=== PATIENT | female | born 1965 | race Caucasian/White ===

== ENCOUNTER 2017-02-25 00:32 | Observation (INO) | payer SELFPAY ==
[2017-02-25] VITALS (7 sets, daily range): BP systolic 113–141; BP diastolic 74–94; PULSE 61–86; RESP 16–20; TEMP 96.1–98.6; O2SAT 95–100
[~2017-02-25] VITALS: Ht 167.6 cm; Wt 76.0 kg
[~2017-02-25 00:32] MED LIST: METH10TA PO
--- NOTE | 2017-02-25 00:50 | PD ---
HPI Chief Complaint: Injury Time Seen by Provider: 00:47 Travel History International Travel<30 days: No Contact w/Intl Traveler<30days: No Traveled to known affect area: No History of Present Illness HPI 52-year-old female presents for evaluation of left elbow pain. Prior to arrival the patient reports that she was walking and it was dark outside. She reports that she was on the phone with a friend when she tripped over a fence. She hit her left elbow against the ground. She now has pain to the left elbow, throbbing, constant, worse with movement. Denies any numbness or tingling. Denies any other injuries. Last tetanus vaccination unknown. No other complaints. PFSH Past Medical History Blood Disorders: No Anxiety: Yes Depression: Yes Cancer: No Cardiovascular Problems: No Diminished Hearing: No Endocrine: No Gastrointestinal Disorders: No Genitourinary: No Immune Disorder: No Implanted Vascular Access Dvce: No Musculoskeletal: No Neurologic: No Psychiatric: No Reproductive: No Respiratory: No Immunizations Current: Yes Tetanus Vaccination: Unknown Influenza Vaccination: No ?: Not : 5 Para: 2 Miscarriage: 2 : 1 Ectopic : Yes Tubal Ligation: Yes Past Surgical History Abdominal Surgery: Yes Gynecologic Surgery: Yes (tubal --'96) Other Surgery: Yes (LEFT ARM SURGERY MRSA RELATED) Social History Alcohol Use: No (denies) Tobacco Use: Yes (10 cigs/daily, last was 11 AM.) Substance Use: No (sober x 1 month) Allergies-Medications (Allergen,Severity, Reaction): Coded Allergies: Vancomycin (Verified Adverse Reaction, Severe, "RED MAN'S SYNDROME", ) Reported Meds & Prescriptions Reported Meds & Active Scripts Active No Active Prescriptions or Reported Medications Review of Systems Musculoskeletal: Positive: Pain Skin: Positive Other (positive for bruising, soft tissue swelling, abrasion, pain) Neurologic: No: Paresthesia Physical Exam Narrative GENERAL: Well-developed well-nourished female in no acute distress SKIN: Warm and dry. Abrasion and olecranon bursal swelling to the left elbow. HEAD: Atraumatic. Normocephalic. EYES: Pupils equal and round. No scleral icterus. No injection or drainage. ENT: No nasal bleeding or discharge. Mucous membranes pink and moist. NECK: Trachea midline. No JVD. CARDIOVASCULAR: Regular rate and rhythm. No murmur appreciated. RESPIRATORY: No accessory muscle use. Clear to auscultation. Breath sounds equal bilaterally. MUSCULOSKELETAL: Skin as noted above. Tender to palpation posterior left elbow. Full range of motion left upper extremity. Pain with flexion and extension left elbow. 2+ radial pulse, capillary refill less than 2 seconds all digits left hand. NEUROLOGICAL: Awake and alert. No obvious cranial nerve deficits. Motor grossly within normal limits. Normal speech. Data Data Last Documented VS Vital Signs Date Time Temp Pulse Resp B/P Pulse Ox O2 Delivery O2 Flow Rate FiO2 02/25/17 00:34 98.6 79 16 135/94 100 Room Air Orders Tetanus/Diphtheria Tox Adult (Tetanus/Di (02/25/17 01:00) Elbow, Complete (4 Vws) (02/25/17 ) Iv Access Insert/Monitor (02/25/17 01:47) Complete Blood Count With Diff (02/25/17 01:47) Basic Metabolic Panel (Bmp) (02/25/17 01:47) Act Partial Throm Time (Ptt) (02/25/17 01:47) Prothrombin Time / Inr (Pt) (02/25/17 01:47) Electrocardiogram (02/25/17 ) Splint Or Brace Apply/Monitor (02/25/17 01:47) Morphine Inj (Morphine Inj) (02/25/17 02:00) Ondansetron Inj (Zofran Inj) (02/25/17 02:00) NPO (02/25/17 01:48) Consult Orthopedic (02/25/17 ) Admit Order (Ed Use Only) (02/25/17 02:09) MDM Medical Decision Making Medical Screen Exam Complete: Yes Emergency Medical Condition: Yes Medical Record Reviewed: Yes Differential Diagnosis Olecranon bursitis, abrasion, fracture, contusion, dislocation Narrative Course X-ray imaging confirms a left olecranon fracture. Tetanus status updated. Discussed with the on-call orthopedist Dr. Gallo he would like the patient remained npo, admission to the hospitalist, orthopedic consultation. Discussed these recommendations with the patient who is agreeable. A posterior long-arm splint has been ordered. The patient will be admitted. Morphine and Zofran up in order for pain control. Procedures EKG Prior to Arrival: Yes Diagnosis Primary Impression: Fracture of left olecranon process Qualified Code: S52.022A - Fracture of left olecranon process, closed, initial encounter Admitting Information Admitting Physician Requests: Observation Scripts No Active Prescriptions or Reported Meds Bridger Gil Feb 25, 2017 00:50
[2017-02-25] MEDS ORDERED: TETANUS/DIPHTHERIA TOXOID ADULT 0.5 ML VIAL IM ONE (01:00)
--- NOTE | 2017-02-25 01:20 | RADRPT ---
EXAM DATE/TIME: 02/25/2017 01:04 [facility] COMPARISON: No previous studies available for comparison. INDICATIONS : Left elbow pain. MEDICAL HISTORY : None. SURGICAL HISTORY : None. ENCOUNTER: Initial ACUITY: 1 day PAIN SCORE: 8/10 LOCATION: Left elbow. FINDINGS: 4 views left elbow reveal acute fracture through the olecranon process. No retraction of the fracture fragment observed. Remaining bony structures are intact. CONCLUSION: Acute fracture through the olecranon process. Homer Pinto Jr., MD on February 25, 2017 at 1:18 Board Certified Radiologist. This report was verified electronically.
[2017-02-25] MEDS ORDERED: ONDANSETRON HCL 4 MG/2 ML VIAL IV PUSH ONE ×2 (02:00→12:00)
[2017-02-25] MEDS ORDERED: MORPHINE SULFATE 8 MG/ML INJ IV PUSH ONE (02:00)
[2017-02-25] MEDS: SODIUM CHLOR 0.9% 1000 ML INJ 1,000 ML IV SCH ×3 (02:11→21:26)
[2017-02-25] MEDS ORDERED: BISACODYL 10 MG SUPP RECTAL PRN (02:15)
[2017-02-25] MEDS ORDERED: ACETAMINOPHEN/HYDROcodone 325 MG/5 MG TAB PO PRN (02:15)
[2017-02-25] MEDS ORDERED: ACETAMINOPHEN 325 MG TAB PO PRN (02:15)
[2017-02-25] MEDS ORDERED: MORPHINE SULFATE 4 MG/ML INJ IV PRN (02:15)
[2017-02-25] MEDS ORDERED: SODIUM CHLORIDE 0.9% FLUSH 10 ML FLUSH IV FLUSH PRN (02:15)
[2017-02-25] MEDS ORDERED: ONDANSETRON HCL 4 MG/2 ML VIAL IVP PRN (02:15)
--- NOTE | 2017-02-25 03:32 | HHI.HP ---
[facility] No Primary Care Physician Admission Diagnosis (L) Olecranon fracture Diagnoses: (1) Fall Diagnosis: Principal (2) Fracture of left olecranon process Diagnosis: Principal (3) HTN (hypertension) Diagnosis: Principal (4) Tobacco abuse Diagnosis: Principal Travel History International Travel<30 Days: No Contact w/Intl Traveler <30 Da: No Traveled to Known Affected Are: No History of Present Illness This is a 52-year-old female with a PMH of Anxiety, Depression, h/o Substance Abuse and Tobacco Abuse who was brought to the ER w/ complaints of left elbow pain following fall. Per patient, she walking and talking on her phone and didn 't notice a chain link fence, states she tripped and fell onto left elbow w/ complaints of immediate pain. No head trauma or LOC reported. On arrival, BP 135/94, HR 79, O2 sat 100% on RA, Afebrile. Elbow X-ray with acute fracture through olecranon process. Dr. Gallo consulted by ER physician, plan is for surgical intervention. Review of Systems Except as stated in HPI: all other systems reviewed are Neg ROS: 14 point review of systems otherwise negative. Past Family Social History Past Medical History PMH: Anxiety, Depression, h/o Substance Abuse and Tobacco Abuse Past Surgical History PAST SURGICAL HISTORY: Left Arm Surgery, Tubal Allergies: Coded Allergies: Vancomycin (Verified Adverse Reaction, Severe, "RED MAN'S SYNDROME", ) Family History PAST FAMILY HISTORY: Reviewed. No h/o DM or CAD Social History PAST SOCIAL HISTORY: Negative for alcohol. Positive for tobacco. History of substance abuse, quit 1 month ago. Physical Exam Vital Signs Vital Signs Date Time Temp Pulse Resp B/P Pulse Ox O2 Delivery O2 Flow Rate FiO2 02/25/17 00:34 98.6 79 16 135/94 100 Room Air Physical Exam PE: GENERAL: Middle-aged female in no acute distress. HEENT: PERRLA, EOMI. No scleral icterus or conjunctival pallor. No lid lag or facial droop. CARDIOVASCULAR: Regular rate and rhythm. No obvious murmurs to auscultation. No chest tenderness to palpation. RESPIRATORY: No obvious rhonchi or wheezing. Clear to auscultation. Breath sounds equal bilaterally. GASTROINTESTINAL: Abdomen soft, non-tender, nondistended. BS normal. MUSCULOSKELETAL: Extremities without clubbing, cyanosis, or edema. No obvious deformities. LUE w/ decreased ROM due to injury. Pulses intact. NEUROLOGICAL: Awake, alert and oriented x4. No focal neurologic deficits. Moving both upper and lower extremities spontaneously. Assessment and Plan Problem List: (1) Fall ICD Code: W19.XXXA Status: Acute (2) Fracture of left olecranon process ICD Code: S52.022A Status: Acute (3) HTN (hypertension) ICD Code: I10 Status: Acute (4) Tobacco abuse ICD Code: Z72.0 Status: Acute Assessment and Plan A/P: 1. Fall: s/p mechanical trip and fall after walking into a chain link fence, no head trauma or LOC reported. 2. Left Elbow Fx: s/p fall onto left elbow, Elbow X-ray w/ fracture through olecranon process, images reviewed by me. Dr. Gallo consulted by ER physician , plan is for surgical intervention in am. NPO, IVF, analgesics/antiemetics as needed. 3. HTN: BP 130-140's on arrival, likely compounded by pain. No h/o HTN, will monitor. 4. Tobacco Abuse: Pt counselled. Ativan/NicoDerm prn if needed. 5. DVT Prophylaxis: Anticoagulation post op per Ortho 6. Social work for d/c planning as needed. 7. Case discussed w/ ER physician at length. Physician Certification 2 Midnight Certification Type: Admission for Inpatient Services Order for Inpatient Services The services are ordered in accordance with Medicare regulations or non- Medicare payer requirements, as applicable. In the case of services not specified as inpatient-only, they are appropriately provided as inpatient services in accordance with the 2-midnight benchmark. Estimated LOS (days): 2 days is the estimated time the patient will need to remain in the hospital, assuming treatment plan goals are met and no additional complications. Post-Hospital Plan: Not yet determined Problem Qualifiers (1) Fracture of left olecranon process: Qualified Code: S52.022A - Fracture of left olecranon process, closed, initial encounter Omaira Villa MD Feb 25, 2017 03:31
[2017-02-25 04:02] LABS: AUTOMATED NEUTROPHIL # 2.9 TH/MM3 (1.8-7.7); BASOPHIL % 0.4 % (0.0-2.0); EOSINOPHIL # 0.1 TH/MM3 (0-0.4); EOSINOPHIL % 1.5 % (0.0-4.0); HEMATOCRIT 46.7 % (35.0-46.0); LYMPH % 33.3 % (9.0-44.0); LYMPHOCYTE # 1.7 TH/MM3 (1.0-4.8); MEAN CELL VOLUME 91.7 FL (80.0-100.0); MEAN CORPUSCULAR HEMOGLOBIN 30.6 PG (27.0-34.0); MEAN CORPUSCULAR HGB CONC 33.4 % (32.0-36.0); MONO % 9.2 % (0.0-8.0); NEUT % 55.6 % (16.0-70.0); PLATELET COUNT 175 TH/MM3 (150-450); RED CELL DISTRIBUTION WIDTH 15.5 % (11.6-17.2); WHITE BLOOD COUNT 5.2 TH/MM3 (4.0-11.0)
[2017-02-25 04:06] LABS: HEMO FLAGS AUTO DIFF
[2017-02-25 04:25] LABS: PLATELET ESTIMATE SMEAR NORMAL (NORMAL); PLATELET MORPHOLOGY NORMAL (NORMAL); SCAN/DIFF AUTO DIFF CONFIRMED
[2017-02-25 04:27] LABS: BICARBONATE 23.2 MEQ/L (21.0-32.0); POTASSIUM 4.3 MEQ/L (3.5-5.1)
[2017-02-25] MEDS ORDERED: HYDR-3288 PO (06:51)
[2017-02-25] MEDS ORDERED: MIDAZOLAM HCL 2 MG/2 ML VIAL ONE (08:18)
[2017-02-25] MEDS ORDERED: DEXAMETHASONE SOD PHOS 4 MG/ML VIAL ONE (08:18)
[2017-02-25] MEDS ORDERED: ACETAMINOPHEN 1000 MG/100 ML VIAL IV ONE (08:18)
[2017-02-25] MEDS: SODIUM CHLORIDE 0.9% FLUSH 10 ML FLUSH IV FLUSH SCH ×2 (09:00→20:34)
[2017-02-25] MEDS ORDERED: ceFAZolin INJ 1,000 MG VIAL IV ONE (09:05)
[2017-02-25] MEDS ORDERED: GENTAMICIN SULFATE 80 MG/2 ML VIAL IRRIGATION ONE (09:09)
[2017-02-25] MEDS ORDERED: CLINDAMYCIN PHOS 600 MG/4 ML VIAL ONE (09:12)
[2017-02-25] MEDS ORDERED: CLINDAMYCIN PHOS 600 MG/4 ML VIAL IM ONE (09:12)
--- NOTE | 2017-02-25 09:48 | PD.OP ---
cc: Miky Boateng MD Operative Report Date of Surgery: Feb 25, 2017 Preoperative Diagnosis: Left olecranon fracture Postoperative Diagnosis: Procedure: Open reduction internal fixation left olecranon Anesthesia: Gen. Surgeon: Miky Boateng Towboat Engineer(s): STEVE Adam PA-C The surgical procedure was assisted by my physician catering assistant. My P.A. presence was necessary throughout this case for the manipulation and positioning of the surgical extremity. My P.A. was assisting me throughout the duration of this procedure. The skill set of a physician catering assistant was medically necessary to complete this procedure. During the surgical case the medical surgical tech was working at the back table and the physician catering assistant was directly assisting me. Operation and Findings: Patient was seen and evaluated preoperatively. Patient was found to have a displaced intra-articular olecranon fracture. The risk and benefits of the surgery were discussed in depth and informed consent was obtained. Risk of surgery include bleeding, infection, painful hardware, wound, case, elbow stiffness, loss of motion, elbow arthritis, injuries to arteries nerves or blood vessels, weakness and numbness of hand, as well as medical complications associated with general anesthesia. All questions were answered. Patient was brought to operating room. IV sedation and anesthesia were administered. Patient was placed into a lateral decubitus position. Timeout procedure was performed. IV antibiotics were administered prior to incision. The operative arm was prepped with alcohol followed by Hibiclens and draped in usual sterile fashion. Procedure began with a 4 inch incision over the olecranon. Subcutaneous tissue dissected with Bovie. Fracture site was visualized. Fascia was elevated around the fracture site. Fracture fragments were gently manipulated. A fracture tenaculum was used to aid in reduction. Multiple K wires result provisional fixation. A 2.7 cortical lag screw was used to compress fracture fragment. A Synthes proximal plate was selected. Plate was provisionally held with K wires 3.5 cortical screws were used to compress plate to bone. Multiple cortical screws were placed in the ulna shaft. Multiple locking screws were placed in the proximal ulna. All screws were predrilled and premeasured for appropriate length. K wires were removed. Final fluoroscopy revealed excellent of fractures well-placed hardware. Articular surface appeared to be in near anatomic alignment. Wound was now thoroughly irrigated. Incision was now closed with #1 Vicryl, 3-0 Vicryl, and ernestine. Sterile dressings were applied. Patient's placed a well molded well-padded splint. Patient was transferred to recovery in stable condition. Miky Boateng MD Feb 25, 2017 09:48
[2017-02-25] MEDS ORDERED: Post-op Orders (for Pharmacy) MISC XX ONE (10:00)
[2017-02-25] MEDS ORDERED: fentaNYL CITRATE 250 MCG/5 ML AMP ONE (10:24)
--- NOTE | 2017-02-25 10:24 | MB ---
cc: RENALDO MCKEON DATE OF CONSULTATION: 02/25/2017 REASON FOR CONSULTATION: Left olecranon fracture. CONSULTING PHYSICIAN Dr. Villa. HISTORY Irma is a 52-year-old female who presented emergency room after having a fall. She was walking and talking on her phone. She ran into a [employer] and tripped and fell. She landed on her left arm. She denies any dizziness, syncope or loss of consciousness. Pain is worse with movement is improved with rest presented emergency room where x-rays revealed a left olecranon fracture. She is placed into of long-arm splint. Pain is worse with movement. PAST MEDICAL HISTORY/ILLNESSES Anxiety, depression and history of substance abuse. SURGERIES Hand surgery Surgery for tubal . ALLERGIES VANCOMYCIN. FAMILY HISTORY: Family history is noncontributory. SOCIAL HISTORY The patient does smoke, approximately a pack per day. She states that she quit using alcohol, and drugs approximately one month ago. REVIEW OF SYSTEMS The patient denies headache, visual changes, neck pain, chest pain, shortness of breath, abdominal pain, nausea, vomiting or recent weight loss. She complains of left arm pain. PHYSICAL EXAMINATION IN GENERAL: The patient is a thin 52-year-old female in no acute distress. She is awake and alert. She is alert and x3. VITAL SIGNS: Temperature 96.1, pulse 61, respirations 20, blood pressure 134/74, O2 sats 100% room air. HEAD, EYES, EARS, NOSE, AND THROAT: Head: The patient is normocephalic. Pupils are equal. NECK: Soft, nontender. Trachea is midline. ABDOMEN: The abdomen is soft, nontender, nondistended. EXTREMITIES: Examination of left arm reveals no tenderness her shoulder, wrist or fingers. She has intact sensation in all fingers. Radial pulses palpable to the small superficial abrasion over the posterior elbow. Skin is otherwise intact. Examination of right arm reveals no pain with shoulder, elbow or wrist motion. Skin is intact. Radial pulses palpable. X-RAYS X-rays of right elbow were reviewed x-rays reveal a mildly displaced left olecranon fracture. IMPRESSION 1. Tobacco abuse. 2. History of alcohol and drug use. 3. Left olecranon fracture. PLAN The treatment options were discussed with the patient at this point, I would recommend open reduction fixation of left olecranon risks of surgery include bleeding, infection, injury to blood vessels, nonunion, malunion, painful hardware, wound infection as well as medical complications including blood clot, stroke, heart attack and . All questions were answered. I also went through the discussion with the patient regarding and need for smoking cessation. I explained her that if she continues to smoke she will have a much higher likelihood developing a wound problem, infection or nonunion. She was strongly encouraged to stop smoking. A mid-level provider in my office (nurse practitioner or physician museum assistant) may see this patient on follow-up visits and continue to implement the objectives of this plan including: Starting or adjusting medications, injections , cast application, orthotics, brace application, physical therapy, radiological studies (including x-ray, MRI, CT, ultrasound, bone scan), vascular studies, neurologic studies, specialist consultation, and proceeding with surgical management, as appropriate. MD YOLANDA Dacosta/paul /9:52 AM /10:17 AM DEEPIKA
[2017-02-25] MEDS ORDERED: DO NOT ADM ANY ANTICOAGULANT DRUGS PRN ×2 (11:00→12:00)
--- NOTE | 2017-02-25 11:48 | RADRPT ---
EXAM DATE/TIME: 02/25/2017 10:19 [facility] COMPARISON: No previous studies available for comparison. INDICATIONS : Central line placement done in or. MEDICAL HISTORY : Acute fracture through the olecranon process. SURGICAL HISTORY : None. ENCOUNTER: Initial ACUITY: 1 day PAIN SCORE: 0/10 LOCATION: Bilateral chest FINDINGS: The lungs are clear without infiltrate, nodule, or mass. There is no appreciable pleural effusion fo r technique. Heart and mediastinum are unremarkable. Right IJ line is present with tip overlapping t he expected region of the SVC. CONCLUSION: No acute cardiopulmonary disease. Rocky Rodriguez MD on February 25, 2017 at 11:46 Board Certified Radiologist. This report was verified electronically.
[2017-02-25] MEDS ORDERED: PROPOFOL 200 MG/20 ML AMP IV ONE (12:00)
--- NOTE | 2017-02-25 13:03 | RADRPT ---
EXAM DATE/TIME: 02/25/2017 09:33 [facility] COMPARISON: No previous studies available for comparison. INDICATIONS : ORIF left olecranon. MEDICAL HISTORY : None. SURGICAL HISTORY : None. ENCOUNTER: Subsequent ACUITY: 1 day PAIN SCORE: Non-responsive. LOCATION: Left elbow. FINDINGS: Side plate and multiple screws traverse the ulna with excellent anatomical alignment of the fracture fragments. CONCLUSION: Intact postsurgical changes for technique. Rocky Rodriguez MD on February 25, 2017 at 13:00 Board Certified Radiologist. This report was verified electronically.
[2017-02-25 16:06] LABS: APTT (PATIENT) 29.5 SEC (24.3-30.1); PROTHROMBIN TIME - PATIENT 11.6 SEC (9.8-11.6)
[2017-02-25] MEDS: ACETAMINOPHEN/HYDROcodone 325 MG/7.5 MG TAB PO PRN (16:09)
[2017-02-25] MEDS: MORPHINE SULFATE 4 MG/ML INJ IV PUSH PRN (16:10)
[2017-02-25] MEDS: ceFAZolin 2 GM PREMIX 50 ML IV SCH (16:11)
--- NOTE | 2017-02-25 18:51 | EKG ---
Date Performed: 02/25/2017 Time Performed: 02:27:48 PTAGE: 52 years EKG: Sinus rhythm NORMAL ECG Compared to prior tracing no significant change PREVIOUS TRACING 05/18/08 @10.49.46 DOCTOR: Juan Carlos Ramírez Interpretating Date/Time 02/25/2017 18:50:31
[2017-02-26] VITALS: BP 115/56; PULSE 75; RESP 18; TEMP 95.3; O2SAT 95
[2017-02-26] MEDS: ceFAZolin 2 GM PREMIX 50 ML IV SCH (00:38)
[2017-02-26] MEDS: MORPHINE SULFATE 4 MG/ML INJ IV PUSH PRN ×2 (00:38→08:42)
[2017-02-26 04:00] VITALS: BP 117/68; PULSE 85; RESP 20; TEMP 97.8; O2SAT 96
[2017-02-26] MEDS: ACETAMINOPHEN/HYDROcodone 325 MG/7.5 MG TAB PO PRN ×2 (06:59→11:39)
[2017-02-26 07:26] LABS: AUTOMATED NEUTROPHIL # 4.2 TH/MM3 (1.8-7.7); BASOPHIL % 0.2 % (0.0-2.0); EOSINOPHIL % 0.5 % (0.0-4.0); HEMATOCRIT 36.1 % (35.0-46.0); HEMO FLAGS DIFF FINAL; LYMPH % 28.7 % (9.0-44.0); MEAN CELL VOLUME 90.1 FL (80.0-100.0); MEAN CORPUSCULAR HEMOGLOBIN 29.4 PG (27.0-34.0); MEAN CORPUSCULAR HGB CONC 32.7 % (32.0-36.0); MONO % 9.5 % (0.0-8.0); NEUT % 61.1 % (16.0-70.0); PLATELET COUNT 159 TH/MM3 (150-450); RED BLOOD COUNT 4.01 MIL/MM3 (4.00-5.30); RED CELL DISTRIBUTION WIDTH 15.4 % (11.6-17.2); WHITE BLOOD COUNT 6.9 TH/MM3 (4.0-11.0)
[2017-02-26 07:52] LABS: ALT (GPT) 37 U/L (10-53); ANION GAP 7 MEQ/L (5-15); AST (GOT) 27 U/L (15-37); BLOOD UREA NITROGEN 8 MG/DL (7-18); CHLORIDE 110 MEQ/L (98-107); GLOMERULAR FILTRATION RATE 82 ML/MIN (>89); POTASSIUM 3.8 MEQ/L (3.5-5.1); SODIUM (NA) 142 MEQ/L (136-145)
[2017-02-26 07:54] LABS: ALKALINE PHOSPHATASE 117 U/L (45-117); TOTAL BILIRUBIN ADULT 0.4 MG/DL (0.2-1.0)
[2017-02-26 08:11] VITALS: BP 115/72; PULSE 74; RESP 17; TEMP 98.5; O2SAT 97
[2017-02-26] MEDS: SODIUM CHLOR 0.9% 1000 ML INJ 1,000 ML IV SCH (08:11)
--- NOTE | 2017-02-26 08:23 | PD.ORT.PN ---
Subjective Subjective Remarks Very histrionic. As soon as we enter the room she states 'i can't believe it they aren't giving me anything for pain'. Before she was asked a single question she states they are ' only giving her morphine and norco.. who does that?'. Patient states her pain is poorly controlled and that she can feel her incision. She denies any numbness or loss of sens. 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 No chest pain or shortness of breath. No other complaints or concerns. Objective Vitals Vital Signs Date Time Temp Pulse Resp B/P Pulse Ox O2 Delivery O2 Flow Rate FiO2 02/26/17 08:11 98.5 74 17 115/72 97 02/26/17 04:00 97.8 85 20 117/68 96 02/26/17 00:00 95.3 75 18 115/56 95 02/25/17 20:20 98 21 02/25/17 20:03 97.3 82 18 113/75 98 02/25/17 17:09 18 02/25/17 16:15 18 02/25/17 16:15 97.4 63 18 127/82 100 02/25/17 12:45 86 141/87 95 02/25/17 11:00 97.6 70 15 138/97 99 Nasal Cannula 2 02/25/17 10:45 68 13 149/89 99 Nasal Cannula 2 02/25/17 10:30 71 12 143/92 99 Nasal Cannula 2 02/25/17 10:15 99 14 151/86 99 Nasal Cannula 2 02/25/17 10:13 97.4 97 16 142/84 98 Nasal Cannula 2 I/O 02/25/17 02/25/17 02/25/17 02/26/17 02/26/17 02/26/17 07:00 15:00 23:00 07:00 15:00 23:00 Intake Total 960 ml 950 ml Output Total 300 ml Balance 660 ml 950 ml Intake Oral 240 ml IV Total 360 ml 710 ml Other 600 ml Output Urine Total 300 ml # Voids 2 # Bowel Movements 0 Result Diagram: 02/26/17 0600 02/26/17 0600 Other Results Laboratory Tests Test 02/25/17 15:38 Prothrombin Time 11.6 SEC (9.8-11.6) Prothromb Time International 1.0 RATIO Ratio Objective Remarks Sitting up in bed NAD upon entering, becomes distressed when discussing pain medications. 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 Owen Cole Assessment & Plan Ortho Post Op Day #: 1 Problem List: Assessment and Plan pod#1 s/p ORIF Left olecranon Continue PO pain control. [place] 7.5mg written. I have no reason to increase her pain medication at this time. Continue splint. Do not remove, do not get wet. Sling time study observer for comfort. NonWBing LUE. Ortho stable. Ok to d/c home when med stable. F/U in [address] Carrion or GISELA. Lynda Lynn Feb 26, 2017 08:23
[2017-02-26] MEDS: SODIUM CHLORIDE 0.9% FLUSH 10 ML FLUSH IV FLUSH SCH (08:42)
--- NOTE | 2017-02-26 11:29 | HHI.PR ---
Subjective Remarks Follow-up for olecranon fracture. The patient is very upset today about pain control. She states is "ridiculous" that she is given Martin and morphine after surgery. When I try to discuss further pain control options with the patient, she does nothing but talk over me and does not allow a conversation regarding pain control. She states she is able to move her left hand. She states she's been ambulating with no difficulty. She states she's been tolerating diet. She states that she takes Xanax and Adderall at home for bipolar disorder. She is homeless and lives on the streets. She would like in the hospital for a few more days because that's what the nurse research project manager and Dr. Cole told her she needed. Discussed with RN, no acute issues or concerns. Objective Vitals Vital Signs Date Time Temp Pulse Resp B/P Pulse Ox O2 Delivery O2 Flow Rate FiO2 02/26/17 08:11 98.5 74 17 115/72 97 02/26/17 04:00 97.8 85 20 117/68 96 02/26/17 00:00 95.3 75 18 115/56 95 02/25/17 20:20 98 21 02/25/17 20:03 97.3 82 18 113/75 98 02/25/17 17:09 18 02/25/17 16:15 18 02/25/17 16:15 97.4 63 18 127/82 100 02/25/17 12:45 86 141/87 95 I/O 02/25/17 02/25/17 02/25/17 02/26/17 02/26/17 02/26/17 07:00 15:00 23:00 07:00 15:00 23:00 Intake Total 960 ml 950 ml Output Total 300 ml Balance 660 ml 950 ml Intake Oral 240 ml IV Total 360 ml 710 ml Other 600 ml Output Urine Total 300 ml # Voids 2 # Bowel Movements 0 Result Diagram: 02/26/17 0600 02/26/17 0600 Imaging Last Impressions Elbow X-Ray 02/25/17 0000 Signed Impressions: Service Date/Time: Saturday, February 25, 2017 09:33 - CONCLUSION: Intact postsurgical changes for technique. Rocky Rodriguez MD Chest X-Ray 02/25/17 0000 Signed Impressions: Service Date/Time: Saturday, February 25, 2017 10:19 - CONCLUSION: No acute cardiopulmonary disease. Rocky Rodriguez MD Objective Remarks GENERAL: Well-developed well-nourished. In no acute distress. Appears comfortable upon arriving to the room. SKIN: Warm and dry. No lesions noted. HEENT: Normocephalic. Pupils equal and round. Mucous membranes pink and moist. CARDIOVASCULAR: Regular rate and rhythm. No murmur appreciated. RESPIRATORY: No accessory muscle use. Clear to auscultation. Breath sounds equal bilaterally. GASTROINTESTINAL: Abdomen soft, non-tender, nondistended. Bowel sounds x4. MUSCULOSKELETAL: Left arm in a postoperative splint. Able to move left hand. No clubbing or cyanosis. No edema. NEUROLOGICAL: Awake and alert. No focal neurological deficits. Moves upper and lower extremities spontaneously. Normal speech. PSYCHIATRIC: Agitated mood and flat affect; insight and judgment normal. A/P Problem List: (1) Fall ICD Code: W19.XXXA Status: Acute (2) Fracture of left olecranon process ICD Code: S52.022A Status: Acute (3) Tobacco abuse ICD Code: Z72.0 Status: Chronic Assessment and Plan 52-year-old female with a PMH of bipolar disorder, h/o Substance Abuse, and Tobacco Abuse who presented w/ complaints of left elbow pain following fall Fall: s/p mechanical trip and fall after walking into a chain link fence while talking on her 5, no head trauma or LOC reported. Left Elbow Fx: s/p fall onto left elbow, Elbow X-ray w/ fracture through olecranon process, images personally reviewed. Orthopedics consulted, s/p ORIF of the left olecranon with Dr. Boateng on 02/25/17. Continue pain control with Martin per orthopedics. Patient cleared from orthopedics perspective for discharge and outpatient follow-up. Tobacco Abuse: Patient counseling. History of substance abuse: Reportedly quit 1 month ago. Patient has demonstrated questionable drug-seeking behavior. Pain control as above, caution with controlled substances. Bipolar disorder: Chronic per patient. Resume reported home Adderall and Xanax at [place]. Homelessness: Case management consulted, will provide outpatient resources. DVT Prophylaxis: SCDs Discharge Planning Discharge patient to home Condition on discharge: Improved Regular Diet as tolerated Regular activity Rx written: Martin Follow-up with primary care physician and orthopedics Problem Qualifiers (1) Fall: Qualified Code: W19.XXXA - Fall, initial encounter (2) Fracture of left olecranon process: Qualified Code: S52.022A - Fracture of left olecranon process, closed, initial encounter Romulo Boyce Feb 26, 2017 11:29
== END 2017-02-26 14:50 | disposition home or self-care (01) ==
LOC: NEPK 00:32 → OBSVTOIN 02:10 → INTOOBSV 02:10 → UNDOADMOB 02:10 → NEDA 02:10 → N05B 06:37
PROVIDERS: ADMIT Internal Medicine; ATTEND Internal Medicine
DX: S52.022A Displaced fracture of olecranon process without intraarticular extension of left ulna, initial encounter for closed fracture (principal); I10 Essential (primary) hypertension; F31.9 Bipolar disorder, unspecified; F17.200 Nicotine dependence, unspecified, uncomplicated; Y93.01 Activity, walking, marching and hiking; W01.0XXA Fall on same level from slipping, tripping and stumbling without subsequent striking against object, initial encounter; Z59.0 Homelessness
CPT/HCPCS: 01740; 24685; 71010; 73070; 73080; 76000; 80048; 80053; 85025; 85610; 85730; 90471; 90714; 93005; 94150; 99284; C1713; G0378; J0131; J0690; J1100; J1580; J2250; J2270; J2405; J3010; J7030